=== PATIENT | female | born 1940 | race Caucasian/White ===

== ENCOUNTER 2018-05-26 17:52 | Inpatient (IN) | payer OTHER ==
[~2018-05-26] VITALS: Ht 154.9 cm; Wt 78.5 kg
[2018-05-26] MEDS ORDERED: SODIUM CHLORIDE 0.9% 500ML 500 ML IV STA (19:24)
[2018-05-26] MEDS ORDERED: ONDANSETRON HCL INJ 2 MG/ML VIAL IV STA ×2 (19:24→21:34)
[2018-05-26] MEDS ORDERED: LABETALOL HCL 5 MG/ML 20ML VIAL IV STA (19:24)
[2018-05-26] MEDS ORDERED: MECLIZINE HCL 12.5 MG TAB PO NR (19:30)
[2018-05-26 19:59] LABS: BASOPHILS # (AUTO) 0.1 (0.0-0.1); BASOPHILS % 0.6 % (0.0-1.0); EOSINOPHILS % 0.4 % (0.0-6.0); HEMATOCRIT 37.7 % (34.2-44.1); HEMOGLOBIN 12.8 g/dL (12.0-16.0); LYMPHOCYTES # (AUTO) 1.5 (1.0-3.2); LYMPHOCYTES % 18.8 % (18.0-39.1); MEAN CORPUSCULAR HEMOGLOBIN 28.8 pg (28-32); MEAN CORPUSCULAR VOLUME 84.7 fL (81-99); MONOCYTES # (AUTO) 0.4 (0.2-0.8); MONOCYTES % 5.4 % (4.4-11.3); NEUTROPHILS # (AUTO) 5.8 (2.1-6.9); NEUTROPHILS % 74.4 % (38.7-80.0); PLATELET COUNT 271 x10e3/uL (140-360); RED BLOOD COUNT 4.45 x10e6/uL (3.6-5.1); RED CELL DISTRIBUTION WIDTH 12.8 % (11.7-14.4)
[2018-05-26 20:10] LABS: CLARITY,URINE HAZY (CLEAR); COLOR,URINE YELLOW (YELLOW); LEUKOCYTE ESTERASE ,URINE NEGATIVE (NEGATIVE); NITRITE,URINE NEGATIVE (NEGATIVE); PROTEIN,URINE DIPSTICK 2+ (NEGATIVE)
[2018-05-26 20:11] LABS: BILIRUBIN,URINE NEGATIVE (NEGATIVE); KETONES,URINE 1+ (NEGATIVE); URINE UROBILINOGEN 0.2 mg/dL (0.2 - 1)
[2018-05-26 20:18] LABS: INR 1.07; PARTIAL THROMBOPLASTIN TIME 30.1 seconds (23.8-35.5); PROTHROMBIN TIME 13.1 seconds (11.9-14.5)
[2018-05-26 20:20] LABS: BACTERIA,URINE MODERATE /HPF; EPITHELIAL CELLS,URINE MODERATE /LPF; WBC,URINE (MAN) 0-5 /HPF (0-5)
[2018-05-26] MEDS ORDERED: METOPROLOL TARTRATE INJ 1 MG/ML VIAL IV NR (21:15)
[2018-05-26 21:27] LABS: ALANINE AMINOTRANSFERASE 14 IU/L (0-55); ALBUMIN 3.8 g/dL (3.5-5.0); ALKALINE PHOSPHATASE 60 IU/L (40-150); AMYLASE 22 U/L (25-125); ANION GAP 15.3 mmol/L (8-16); BLOOD UREA NITROGEN 14 mg/dL (7-26); BUN/CREATININE RATIO 19 (6-25); CALCIUM 9.4 mg/dL (8.4-10.2); CARBON DIOXIDE 21 mmol/L (22-29); CHLORIDE 98 mmol/L (98-107); CREATINE KINASE 78 IU/L (29-168); CREATININE, SERUM 0.72 mg/dL (0.57-1.11); EST GLOMERULAR FILTRATION RATE > 60 ML/MIN (60-); GLUCOSE 142 mg/dL (74-118); LIPASE 17 U/L (8-78); MAGNESIUM 1.5 MG/DL (1.3-2.1); POTASSIUM 3.3 mmol/L (3.5-5.1); SODIUM 131 mmol/L (136-145)
[2018-05-26] MEDS ORDERED: ULTRACET TABLE1 EACH PO (21:31)
[2018-05-26] MEDS ORDERED: MONTELUKAST SOD10 MG PO (21:31)
[2018-05-26] MEDS ORDERED: LOSARTAN-HCTZ1 EAC1 PO (21:31)
[2018-05-26] MEDS ORDERED: LABETALOL HCL200 MG PO (21:31)
[2018-05-26] MEDS ORDERED: TIZANIDINE HCL4 MG PO (21:31)
[2018-05-26] MEDS ORDERED: GABAPENTIN300 MG PO (21:31)
[2018-05-26] MEDS ORDERED: CHLORTHALIDONE50 MG PO (21:31)
[2018-05-26] MEDS ORDERED: PRAVASTATIN SOD20 MG PO (21:31)
[2018-05-26] MEDS ORDERED: SPIRONOLACTONE25 MG PO (21:31)
[2018-05-26] MEDS ORDERED: AMLODIPINE BESYL5 MG PO (21:31)
[2018-05-26] MEDS ORDERED: HYDRALAZINE HCL50 MG PO (21:31)
--- NOTE | 2018-05-26 21:34 | Diagnostic Imaging Report ---
CHEST SINGLE (PORTABLE), 05/26/2018 7:24 PM Technique: CHEST SINGLE (PORTABLE) Comparison: None available. Clinical history: Dizziness Findings: See Impression Impression: 1. Mildly enlarged cardiac silhouette, accentuated by portable technique. 2. No consolidation or edema. 3. No effusion or pneumothorax. Signed by: Dr Lola Huynh MD on 05/26/2018 9:31 PM
[2018-05-26] MEDS ORDERED: ASPIR 8181 MG PO (21:41)
[2018-05-26] MEDS ORDERED: NEXIUM20 MG PO (21:41)
[2018-05-26] MEDS ORDERED: OXYBUTYNIN CHLOR5 M1 PO (21:42)
[2018-05-26] MEDS ORDERED: HYDRALAZINE HCL 25 MG TAB PO ONE ×2 (21:45)
[2018-05-26] MEDS ORDERED: METOPROLOL TARTRATE INJ 1 MG/ML VIAL IV ONE ×2 (21:45)
[2018-05-26] MEDS ORDERED: NITROGLYCERIN 2% OINT 1 GM PKT ONE (22:12)
[2018-05-26] MEDS ORDERED: NITROGLYCERIN 2% OINT 1 GM PKT TOP ONE (22:15)
--- NOTE | 2018-05-26 22:28 | Diagnostic Imaging Report ---
EXAMINATION: Head CT without contrast. HISTORY:Nausea and dizziness. COMPARISON:None. TECHNIQUE: Multidetector axial images were obtained from the foramen magnum to the vertex without contrast. The images were reconstructed using brain and bone algorithms. Thin section brain images were reformatted into coronal and sagittal planes. Dose modulation, iterative reconstruction, and/or weight based adjustment of the mA/kV was utilized to reduce the radiation dose to as low as reasonably achievable. Intravenous contrast: None IMAGE QUALITY: Acceptable. FINDINGS: Skull/scalp: No lytic or blastic. lesions. No surgical changes. Parenchyma: Nonspecific bilateral frontoparietal confluent periventricular and patchy subcortical white matter hypodensity are likely related to small vessel ischemic changes. Focal hypodensity in left caudate head represents an old lacunar infarct. No acute hemorrhage, mass or acute major vascular territorial infarct. Arteries: No density suggestive of thrombosis. Mild atherosclerotic calcification in bilateral carotid siphon. Dural sinuses: No abnormal density suggestive of thrombosis. Ventricles: Mild compensated dilatation due to volume loss. No hydrocephalus. Extra-axial spaces: Incidental extra-axial, right anterior para falcine small, rounded lesion that approximately measures 1 x 1.2 x 0.6 cm (image 20, series 2) without significant regional mass effect or edema. Brain volume: Generalized age-related cerebral volume loss. Craniocervical junction: No mass, Chiari malformation, or basilar invagination. Sella: No mass. Paranasal/mastoid sinuses: Mild mucosal thickening in right and moderate mucosal thickening in left anterior ethmoid air cells. Mild mucosal thickening in left frontal sinus. IMPRESSION: 1. No acute intracranial abnormality, particularly no acute hemorrhage, mass or acute major vascular territorial infarct. 2. Severe supratentorial white matter microvascular ischemic changes. 3. Incidental right anterior parafalcine 1.2 cm extra-axial lesion, possibly represents an incidental meningioma. 4. Generalized age-related cerebral volume loss. Signed by: Dr. Carol Walters M.D. on 05/26/2018 10:25 PM
[2018-05-26] MEDS ORDERED: TRAMADOL/APAP 37.5MG-325MG TAB PO PRN (23:15)
[2018-05-26] MEDS ORDERED: MECLIZINE HCL 12.5 MG TAB PO PRN (23:15)
[2018-05-26] MEDS ORDERED: SODIUM CHLORIDE FLUSH 10 ML SYR INJ PRN (23:15)
[2018-05-27] VITALS (8 sets, daily range): BP systolic 94–173; BP diastolic 46–79
[2018-05-27] MEDS: ONDANSETRON HCL INJ 2 MG/ML VIAL IV PRN ×2 (01:47→05:55)
[2018-05-27] MEDS: NITROGLYCERIN 2% OINT 1 GM PKT TOP SCH ×3 (03:53→11:50)
[2018-05-27 05:12] LABS: BASOPHILS # (AUTO) 0.1 (0.0-0.1); BASOPHILS % 0.5 % (0.0-1.0); EOSINOPHILS % 0.2 % (0.0-6.0); HEMATOCRIT 33.4 % (34.2-44.1); HEMOGLOBIN 11.2 g/dL (12.0-16.0); LYMPHOCYTES % 21.7 % (18.0-39.1); MEAN CORPUSCULAR HEMOGLOBIN 28.5 pg (28-32); MEAN CORPUSCULAR HGB CONC 33.5 g/dL (31-35); MONOCYTES # (AUTO) 0.8 (0.2-0.8); MONOCYTES % 8.3 % (4.4-11.3); NEUTROPHILS # (AUTO) 6.4 (2.1-6.9); PLATELET COUNT 240 x10e3/uL (140-360); RED BLOOD COUNT 3.93 x10e6/uL (3.6-5.1); RED CELL DISTRIBUTION WIDTH 12.7 % (11.7-14.4)
[2018-05-27 05:33] LABS: ALANINE AMINOTRANSFERASE 13 IU/L (0-55); ALBUMIN 3.6 g/dL (3.5-5.0); ALBUMIN/GLOBULIN RATIO 1.1 (0.8-2.0); ALKALINE PHOSPHATASE 55 IU/L (40-150); ANION GAP 14.1 mmol/L (8-16); BLOOD UREA NITROGEN 16 mg/dL (7-26); BUN/CREATININE RATIO 20 (6-25); CALCIUM 9.4 mg/dL (8.4-10.2); CARBON DIOXIDE 24 mmol/L (22-29); CHLORIDE 94 mmol/L (98-107); EST GLOMERULAR FILTRATION RATE > 60 ML/MIN (60-); GLUCOSE 137 mg/dL (74-118); POTASSIUM 3.1 mmol/L (3.5-5.1); SODIUM 129 mmol/L (136-145)
[2018-05-27] MEDS: HYDRALAZINE HCL 25 MG TAB PO SCH ×3 (08:25→21:00)
[2018-05-27] MEDS: LOSARTAN POTASSIUM 100 MG TAB PO SCH (08:26)
[2018-05-27] MEDS: ASPIRIN 81 MG CHEW TAB PO SCH (08:26)
[2018-05-27] MEDS: HYDROCHLOROTHIAZIDE 25 MG TAB PO SCH (08:27)
[2018-05-27] MEDS: PRAVASTATIN 20 MG TAB PO SCH (08:27)
[2018-05-27] MEDS: AMLODIPINE BESYLATE 5 MG TAB PO SCH ×2 (08:27→09:00)
[2018-05-27] MEDS: CHLORTHALIDONE 25 MG TAB PO SCH (08:27)
[2018-05-27] MEDS: OXYBUTYNIN CHLORIDE XL 5 MG TAB PO SCH (08:27)
[2018-05-27] MEDS: GABAPENTIN 300 MG CAP PO SCH ×3 (08:27→21:13)
[2018-05-27] MEDS: MONTELUKAST SODIUM 10 MG TAB PO SCH (08:27)
[2018-05-27] MEDS: PANTOPRAZOLE SOD 40 MG TABEC PO SCH (08:27)
[2018-05-27] MEDS: TIZANIDINE HCL 4 MG TAB PO SCH ×3 (08:28→21:13)
[2018-05-27] MEDS: LABETALOL HCL 200 MG TAB PO SCH ×3 (08:28→21:00)
[2018-05-27] MEDS ORDERED: QUESTRAN PACKET4 GM PO (09:43)
[2018-05-27] MEDS ORDERED: FLUTICASONE PRO60 ML (09:43)
[2018-05-27] MEDS ORDERED: VOLTAREN100 GM TOP (09:43)
[2018-05-27] MEDS ORDERED: POTASSIUM CHLORIDE 20 MEQ TAB CR PO NR (13:45)
[2018-05-27] MEDS: SODIUM CHLORIDE 0.9% 1000ML 1,000 ML IV SCH (14:02)
--- NOTE | 2018-05-27 14:19 | Diagnostic Imaging Report ---
Exam: Abdominal film Clinical History: Vomiting Comparison: None. DISCUSSION: The left flank is not included on the image. The bowel gas pattern shows no dilated, air-filled loops of bowel. Gas and fecal material are noted throughout the large bowel. No abnormal abdominal calcification, mass effect, or organomegaly. Scoliotic curvature with associated degenerative disc changes throughout the lumbar spine. Skeletal structures are otherwise intact to the extent visualized. IMPRESSION: Nonobstructive bowel gas pattern. Signed by: Dr. Lucas Guzmán M.D. on 05/27/2018 2:15 PM
[2018-05-28] VITALS (7 sets, daily range): BP systolic 119–174; BP diastolic 57–92
[2018-05-28] MEDS: SODIUM CHLORIDE 0.9% 1000ML 1,000 ML IV SCH ×3 (01:00→18:45)
[2018-05-28] MEDS: HYDRALAZINE HCL 25 MG TAB PO SCH ×4 (02:11→22:48)
[2018-05-28 05:39] LABS: ANION GAP 10.9 mmol/L (8-16); MAGNESIUM 1.5 MG/DL (1.3-2.1)
[2018-05-28 05:55] LABS: POTASSIUM 2.9 mmol/L (3.5-5.1)
[2018-05-28 05:56] LABS: CREATININE, SERUM 1.42 mg/dL (0.57-1.11)
[2018-05-28] MEDS ORDERED: POTASSIUM CHLORIDE 20 MEQ TAB CR PO STA (05:58)
[2018-05-28 06:05] LABS: THYROID STIMULATING HORMONE 2.622 uIU/mL (0.350-4.940)
[2018-05-28] MEDS ORDERED: POTASSIUM CHLORIDE 20 MEQ TAB CR PO SCH (08:00)
[2018-05-28] MEDS: PANTOPRAZOLE SOD 40 MG TABEC PO SCH (08:33)
[2018-05-28] MEDS: HYDROCHLOROTHIAZIDE 25 MG TAB PO SCH (08:33)
[2018-05-28] MEDS: GABAPENTIN 300 MG CAP PO SCH ×2 (08:33→15:28)
[2018-05-28] MEDS: MONTELUKAST SODIUM 10 MG TAB PO SCH (08:33)
[2018-05-28] MEDS: PRAVASTATIN 20 MG TAB PO SCH (08:33)
[2018-05-28] MEDS: ASPIRIN 81 MG CHEW TAB PO SCH (08:33)
[2018-05-28] MEDS: LOSARTAN POTASSIUM 100 MG TAB PO SCH (08:33)
[2018-05-28] MEDS: OXYBUTYNIN CHLORIDE XL 5 MG TAB PO SCH (08:33)
[2018-05-28] MEDS: CHLORTHALIDONE 25 MG TAB PO SCH (08:33)
[2018-05-28] MEDS: TIZANIDINE HCL 4 MG TAB PO SCH ×2 (08:34→15:00)
[2018-05-28] MEDS: LABETALOL HCL 200 MG TAB PO SCH ×3 (09:00→21:00)
--- NOTE | 2018-05-28 11:09 | Diagnostic Imaging Report ---
EXAMINATION: Head CT without contrast. HISTORY:Lethargy, AMS. COMPARISON:CT head 05/26/2018 TECHNIQUE: Multidetector axial images were obtained from the foramen magnum to the vertex without contrast. The images were reconstructed using brain and bone algorithms. Thin section brain images were reformatted into coronal and sagittal planes. Dose modulation, iterative reconstruction, and/or weight based adjustment of the mA/kV was utilized to reduce the radiation dose to as low as reasonably achievable. Intravenous contrast: None IMAGE QUALITY: Good FINDINGS: Skull/scalp: No lytic or blastic. lesions. No surgical changes. Parenchyma: Scattered and confluent white matter hypodensity are likely related to small vessel ischemic changes. Chronic lacunar referred in the left caudate head. No acute hemorrhage, mass or acute major vascular territorial infarct. Arteries: No density suggestive of thrombosis. Mild atherosclerotic calcification in bilateral carotid siphon. Dural sinuses: No abnormal density suggestive of thrombosis. Ventricles: Mild compensated dilatation due to volume loss. No hydrocephalus. Extra-axial spaces: Again seen extra-axial, right anterior para falcine small, rounded lesion that approximately measures 1 x 1.2 x 0.6 cm (SI-AP-Trans): without significant regional mass effect or edema, probably represent a meningioma. Brain volume: Generalized age-related cerebral volume loss. Craniocervical junction: No mass, Chiari malformation, or basilar invagination. Sella: No mass. Paranasal/mastoid sinuses: Mild mucosal thickening in right and moderate mucosal thickening in left anterior ethmoid air cells. Mild mucosal thickening in left frontal sinus. IMPRESSION: 1. No acute intracranial abnormality. 2. Severe supratentorial white matter microvascular ischemic changes. 3. Generalized age-related cerebral volume loss. Signed by: DR Deny Tomas M.D. on 05/28/2018 11:06 AM
[2018-05-28 12:13] LABS: BASOPHILS % 0.4 % (0.0-1.0); EOSINOPHILS # (AUTO) 0.1 (0.0-0.4); EOSINOPHILS % 1.4 % (0.0-6.0); LYMPHOCYTES # (AUTO) 1.9 (1.0-3.2); LYMPHOCYTES % 22.4 % (18.0-39.1); MEAN CORPUSCULAR HEMOGLOBIN 28.8 pg (28-32); MEAN CORPUSCULAR HGB CONC 32.7 g/dL (31-35); MEAN CORPUSCULAR VOLUME 88.2 fL (81-99); MONOCYTES # (AUTO) 1.2 (0.2-0.8); MONOCYTES % 13.8 % (4.4-11.3); NEUTROPHILS # (AUTO) 5.2 (2.1-6.9); NEUTROPHILS % 61.9 % (38.7-80.0); PLATELET COUNT 182 x10e3/uL (140-360); RED CELL DISTRIBUTION WIDTH 13.1 % (11.7-14.4)
[2018-05-28 12:14] LABS: HEMOGLOBIN 9.8 g/dL (12.0-16.0)
[2018-05-28 12:19] LABS: ALBUMIN 3.1 g/dL (3.5-5.0); ANION GAP 11.4 mmol/L (8-16); BILIRUBIN,DIRECT 0.5 mg/dL (0.0-0.5); CALCIUM 8.6 mg/dL (8.4-10.2); CREATININE, SERUM 1.34 mg/dL (0.57-1.11); POTASSIUM 3.4 mmol/L (3.5-5.1)
[2018-05-28 13:01] LABS: ABG HCO3 23 mmol/L (23-28); ABG PCO2 39 mmHg (41-51); ABG PH 7.37 (7.31-7.41); ABG PO2 77 mmHg (80-105)
[2018-05-28] MEDS ORDERED: POTASSIUM CHLORIDE 20 MEQ TAB CR PO NR (14:00)
[2018-05-29 00:15] VITALS: BP 194/79
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
[2018-05-29] MEDS: SODIUM CHLORIDE 0.9% 1000ML 1,000 ML IV SCH (06:11)
[2018-05-29 06:15] VITALS: BP 181/77
[2018-05-29 08:00] VITALS: BP 194/77
[2018-05-29] MEDS: HYDRALAZINE HCL 25 MG TAB PO SCH ×3 (08:14→21:20)
[2018-05-29] MEDS: OXYBUTYNIN CHLORIDE XL 5 MG TAB PO SCH (08:14)
[2018-05-29] MEDS: ASPIRIN 81 MG CHEW TAB PO SCH (08:14)
[2018-05-29] MEDS: MONTELUKAST SODIUM 10 MG TAB PO SCH (08:15)
[2018-05-29] MEDS: PANTOPRAZOLE SOD 40 MG TABEC PO SCH (08:15)
[2018-05-29] MEDS: LABETALOL HCL 200 MG TAB PO SCH ×3 (08:15→22:00)
[2018-05-29] MEDS: PRAVASTATIN 20 MG TAB PO SCH (08:15)
--- NOTE | 2018-05-29 11:33 | Diagnostic Imaging Report ---
History: High blood pressure Comparison studies: None Technique: Sagittal T1, T2 and IR, axial T2 and axial gradient echo Intravenous contrast: None Findings: Alignment: Exaggerated lordosis. No scoliosis. Cervicomedullary junction: No abnormalities. Patent foramen magnum. Soft tissues: No T2 hyperintense inflammatory changes. Spinal cord: Normal in size and signal from the foramen magnum through T4 Vertebrae: Normal in height and signal intensity. No fractures, infection or neoplasm. Degenerative changes: C2-C3: Left subarticular disc osteophyte complex results in narrowing of the left subarticular recesses. Left uncinate process hypertrophy results in mild left foraminal narrowing C3-C4: Disc degeneration with loss of T2 signal. Diffuse disc osteophyte complex, uncinate process and facet hypertrophy results in no significant canal stenosis, moderate right and mild left foraminal narrowing C4-C5: Disc degeneration with loss of T2 signal. Central disc osteophyte complex, bilateral uncinate process hypertrophy, severe right and mild left facet hypertrophy results in moderate bilateral foraminal narrowing. Trace of fluid at the right facet joint C5-C6: Disc degeneration with loss of T2 signal. Diffuse disc osteophyte complex, bilateral uncinate process hypertrophy, mild right and moderate left facet hypertrophy results in mild canal stenosis and severe left foraminal narrowing. C6-C7: Disc degeneration with loss of T2 signal and decreased intervertebral space. Diffuse disc osteophyte complex, bilateral uncinate process hypertrophy and facet hypertrophy results in mild canal stenosis and severe left foraminal narrowing. C7-T1: Patent canal and foramina IMPRESSION: 1. Narrowing of the left subarticular recesses at C2-3 secondary to left subarticular disc osteophyte complex. 2. Severe degenerative left foraminal narrowing at C5-6 and C6-7. 3. Moderate degenerative foraminal narrowing at C3-4 on the right and C4-5 bilaterally. Mild degenerative canal stenosis at the mid cervical spine. 4. Multilevel facet hypertrophy with synovitis changes at C4-5 on the right. Signed by: DR Deny Tomas M.D. on 05/29/2018 11:30 AM
--- NOTE | 2018-05-29 11:53 | Diagnostic Imaging Report ---
History: High blood pressure Comparison studies: CT head 05/28/2018 Technique: Sagittal T2; axial DWI, FLAIR, MPGR, T1, Coronal FLAIR. Intravenous contrast: None Findings: Scalp: Normal in signal . No masses . Bone marrow: Normal in signal intensity. Extra-axial: No masses, no fluid collections. Brain sulci: Appropriate for age. Ventricles: Normal in size . No hydrocephalus . Parenchyma: Multiple foci of restricted diffusion at the bilateral centrum semiovale and right lateral occipital subcortical white matter with associated FLAIR hyperintensity Scattered and confluent T2/flair hyperintensities of the periventricular and deep white matter No masses, hemorrhage, acute or chronic vascular insults. Suprasellar region: No abnormalities. Craniocervical junction: No abnormalities. Patent foramen magnum. No Chiari one malformation. Vessels: Normal flow-voids in the arteries and sinuses. Bilateral cataract surgery changes. IMPRESSION: 1. Small acute lacunar infarcts at the bilateral centrum semiovale and right lateral occipital region in the watershed distribution. 2. Moderate to severe chronic microvascular ischemic changes of the white matter The above finding was reported and acknowledged by Dr. Dinh at 12:13 PM 05/29/2018. Signed by: DR Deny Tomas M.D. on 05/29/2018 12:14 PM
[2018-05-29 12:38] VITALS: BP 207/85
[2018-05-29 16:20] VITALS: BP 205/78
[2018-05-29 16:36] LABS: ANION GAP 10.9 mmol/L (8-16); BLOOD UREA NITROGEN 16 mg/dL (7-26); BUN/CREATININE RATIO 21 (6-25); CALCIUM 9.6 mg/dL (8.4-10.2); CARBON DIOXIDE 24 mmol/L (22-29); CHLORIDE 105 mmol/L (98-107); CREATININE, SERUM 0.77 mg/dL (0.57-1.11); EST GLOMERULAR FILTRATION RATE > 60 ML/MIN (60-); GLUCOSE 99 mg/dL (74-118); POTASSIUM 3.9 mmol/L (3.5-5.1); SODIUM 136 mmol/L (136-145)
[2018-05-29] MEDS ORDERED: HYDRALAZINE HCL 25 MG TAB PO ONE (16:45)
[2018-05-29 16:48] LABS: CHOL/HDL RATIO 2.7 (3.0-3.6)
[2018-05-29 19:27] LABS: BASOPHILS % 0.5 % (0.0-1.0); EOSINOPHILS # (AUTO) 0.3 (0.0-0.4); EOSINOPHILS % 3.7 % (0.0-6.0); HEMOGLOBIN 9.8 g/dL (12.0-16.0); LYMPHOCYTES # (AUTO) 2.2 (1.0-3.2); LYMPHOCYTES % 26.8 % (18.0-39.1); MEAN CORPUSCULAR HEMOGLOBIN 28.9 pg (28-32); MEAN CORPUSCULAR HGB CONC 32.7 g/dL (31-35); MEAN CORPUSCULAR VOLUME 88.5 fL (81-99); MONOCYTES # (AUTO) 0.9 (0.2-0.8); MONOCYTES % 10.4 % (4.4-11.3); NEUTROPHILS # (AUTO) 4.8 (2.1-6.9); NEUTROPHILS % 58.4 % (38.7-80.0); PLATELET COUNT 207 x10e3/uL (140-360); RED BLOOD COUNT 3.39 x10e6/uL (3.6-5.1); RED CELL DISTRIBUTION WIDTH 13.2 % (11.7-14.4)
[2018-05-29 20:00] VITALS: BP 201/81
[2018-05-30] VITALS (8 sets, daily range): BP systolic 141–202; BP diastolic 63–82
[2018-05-30 06:23] LABS: BASOPHILS # (AUTO) 0.1 (0.0-0.1); BASOPHILS % 0.7 % (0.0-1.0); EOSINOPHILS # (AUTO) 0.3 (0.0-0.4); HEMATOCRIT 29.7 % (34.2-44.1); HEMOGLOBIN 9.7 g/dL (12.0-16.0); LYMPHOCYTES # (AUTO) 2.1 (1.0-3.2); LYMPHOCYTES % 26.7 % (18.0-39.1); MEAN CORPUSCULAR HEMOGLOBIN 28.7 pg (28-32); MEAN CORPUSCULAR HGB CONC 32.7 g/dL (31-35); MEAN CORPUSCULAR VOLUME 87.9 fL (81-99); MONOCYTES # (AUTO) 0.7 (0.2-0.8); MONOCYTES % 8.6 % (4.4-11.3); NEUTROPHILS # (AUTO) 4.8 (2.1-6.9); NEUTROPHILS % 59.8 % (38.7-80.0); PLATELET COUNT 219 x10e3/uL (140-360); RED BLOOD COUNT 3.38 x10e6/uL (3.6-5.1); RED CELL DISTRIBUTION WIDTH 13.2 % (11.7-14.4)
[2018-05-30 06:40] LABS: ANION GAP 12.7 mmol/L (8-16); BLOOD UREA NITROGEN 12 mg/dL (7-26); BUN/CREATININE RATIO 15 (6-25); CALCIUM 9.5 mg/dL (8.4-10.2); CARBON DIOXIDE 24 mmol/L (22-29); CHLORIDE 103 mmol/L (98-107); CREATININE, SERUM 0.78 mg/dL (0.57-1.11); EST GLOMERULAR FILTRATION RATE > 60 ML/MIN (60-); GLUCOSE 141 mg/dL (74-118); MAGNESIUM 1.4 MG/DL (1.3-2.1); POTASSIUM 3.7 mmol/L (3.5-5.1); SODIUM 136 mmol/L (136-145)
[2018-05-30] MEDS: LABETALOL HCL 200 MG TAB PO SCH ×3 (09:00→21:47)
[2018-05-30] MEDS: MONTELUKAST SODIUM 10 MG TAB PO SCH (09:00)
[2018-05-30] MEDS: ASPIRIN 81 MG CHEW TAB PO SCH (09:00)
[2018-05-30] MEDS: HYDRALAZINE HCL 25 MG TAB PO SCH ×3 (09:00→21:25)
[2018-05-30] MEDS: PRAVASTATIN 20 MG TAB PO SCH (09:00)
[2018-05-30] MEDS: OXYBUTYNIN CHLORIDE XL 5 MG TAB PO SCH (09:00)
[2018-05-30] MEDS: PANTOPRAZOLE SOD 40 MG TABEC PO SCH (09:00)
[2018-05-30] MEDS ORDERED: LOSARTAN POTASSIUM 25 MG TAB PO SCH (11:00)
[2018-05-30] MEDS ORDERED: HYDROCHLOROTHIAZIDE 25 MG TAB PO SCH (13:30)
[2018-05-30] MEDS ORDERED: LOSARTAN POTASSIUM 100 MG TAB PO ONE (14:00)
[2018-05-30] MEDS ORDERED: ENOXAPARIN SOD INJ 40 MG/0.4 ML SYR SC SCH (17:00)
[2018-05-30] MEDS: CHLORTHALIDONE 25 MG TAB PO SCH (17:15)
[2018-05-31] VITALS: BP 180/76
[2018-05-31 04:00] VITALS: BP 188/75
[2018-05-31 08:35] VITALS: BP 170/70
[2018-05-31] MEDS: CHLORTHALIDONE 25 MG TAB PO SCH (08:35)
[2018-05-31] MEDS: LABETALOL HCL 200 MG TAB PO SCH (08:35)
[2018-05-31] MEDS: OXYBUTYNIN CHLORIDE XL 5 MG TAB PO SCH (08:35)
[2018-05-31] MEDS: PRAVASTATIN 20 MG TAB PO SCH (08:35)
[2018-05-31] MEDS: PANTOPRAZOLE SOD 40 MG TABEC PO SCH (08:35)
[2018-05-31] MEDS: ASPIRIN 81 MG CHEW TAB PO SCH (08:35)
[2018-05-31] MEDS: MONTELUKAST SODIUM 10 MG TAB PO SCH (08:35)
[2018-05-31] MEDS: HYDRALAZINE HCL 25 MG TAB PO SCH (08:35)
[2018-05-31 08:47] VITALS: BP 170/70
[2018-05-31] MEDS ORDERED: LOSARTAN POTASSIUM 100 MG TAB PO SCH (09:00)
[2018-05-31] MEDS ORDERED: CHLORTHALIDONE 25 MG TAB PO ONE (10:45)
[2018-05-31] MEDS ORDERED: HYDROCHLOROTHIAZIDE 25 MG TAB PO SCH (11:00)
--- NOTE | 2018-05-31 11:05 | Discharge Summary ---
PRIMARY CARE DOCTOR: Dr. Kierra De La Torre at [facility]. FINAL DIAGNOSIS: Viral gastroenteritis. SECONDARY DIAGNOSES 1. Dehydration with acute renal failure, resolved. 2. Altered mental status likely due to not clearing her Neurontin in the setting of acute renal failure. 3. Uncontrolled hypertension, better. 4. 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 5. Hyponatremia, resolved. CONSULTANTS: Dr. Dinh, neurologist. PROCEDURES/STUDIES PERFORMED 1. Carotid Doppler. 2. Echocardiogram. 3. Head computerized tomography times 2. 4. KUB. 5. MRI of the brain. 6. MRI of the cervical spine. HISTORY: Per H and P. HOSPITAL COURSE: Patient initially was admitted with gastroenteritis and malignant hypertension. The nausea got better. Her blood pressure medicines were resumed, which includes losartan and 2 diuretics. Patient had an increase in her creatinine up to 1.4. Subsequently, this got better. However, the patient also takes Neurontin and a muscle relaxant. Patient was very lethargic, likely was not clearing these 2 medicines in the setting of acute renal failure. Head CT did not show any acute disease. However, MRI did show an acute watershed stroke. Patient recovered nicely with no deficits. This is likely due to a transient drop in blood pressure down to 110 compared to when she was first admitted. Her blood pressure was well over 200 systolic. After everything is doing better, her blood pressure is still not well controlled until we increased her hydralazine to 100 mg t.i.d. from her 25 mg at home. The patient's carotid Doppler was borderline. However, CTA of the neck was not done given the fact that the patient just recovered from acute renal failure. I have spoken to her PCP in detail. The patient will follow up with her this coming week. She will arrange for her to see vascular. Most likely, she will need a CTA of the neck. The patient was seen and examined today. It took 32 minutes total to discharge this patient. CONDITION ON DISCHARGE: Improved. DISCHARGE MEDICATIONS: Please see medication reconciliation form. ORALIA HAYNES M.D. Job#: [id number] [place] cc:KIERRA DE LA TORRE MD
[2018-05-31 11:47] VITALS: BP 141/63
[2018-05-31] MEDS ORDERED: HYDRALAZINE HCL25 MG PO (12:39)
[2018-06-01] MEDS ORDERED: CHLORTHALIDONE 25 MG TAB PO SCH (09:00)
== END 2018-05-31 14:37 | disposition home or self-care (01) | DRG 391 ==
LOC: ER 17:52 → ERHOLD 23:11 → INTOOBSV 23:11 → OBSVTOIN 23:11 → IMCU 05-27 00:18 → OBSVTOIN 05-29 14:20 → MED/SURG 05-29 17:12
PROVIDERS: ADMIT Internal Medicine; ATTEND Internal Medicine
DX: A08.4 Viral intestinal infection, unspecified (principal); G93.40 Encephalopathy, unspecified; I63.8 Other cerebral infarction; N17.9 Acute kidney failure, unspecified; E87.1 Hypo-osmolality and hyponatremia; E87.2 Acidosis; E86.0 Dehydration; N28.9 Disorder of kidney and ureter, unspecified; I10 Essential (primary) hypertension; E11.9 Type 2 diabetes mellitus without complications; M50.30 Other cervical disc degeneration, unspecified cervical region; E78.5 Hyperlipidemia, unspecified; E87.6 Hypokalemia; I95.9 Hypotension, unspecified; T42.6X5A Adverse effect of other antiepileptic and sedative-hypnotic drugs, initial encounter
CPT/HCPCS: 36415; 36600; 70450; 70551; 71045; 72141; 74018; 80048; 80053; 80061; 80076; 81001; 82140; 82150; 82550; 82553; 82607; 82805; 82948; 83036; 83690; 83735; 83880; 84425; 84443; 84484; 85025; 85610; 85730; 86592; 87040; 87086; 92523; 93005; 93306; 93880; 96361; 99284; G0378; J1650; J2405; J7030; J7040

== ENCOUNTER 2019-02-11 14:38 | Emergency (ER) | payer OTHER ==
[~2019-02-11] VITALS: Ht 154.9 cm; Wt 78.5 kg
[~2019-02-11 14:38] MED LIST: AMLODIPINE BESYL5 MG PO; ASPIR 8181 MG PO; CHLORTHALIDONE50 MG PO; FLUTICASONE PRO60 ML; GABAPENTIN300 MG PO; HYDRALAZINE HCL25 MG PO; HYDRALAZINE HCL50 MG PO; LABETALOL HCL200 MG PO; LOSARTAN-HCTZ1 EAC1 PO; MONTELUKAST SOD10 MG PO; NEXIUM20 MG PO; OXYBUTYNIN CHLOR5 M1 PO; PRAVASTATIN SOD20 MG PO; QUESTRAN PACKET4 GM PO; SPIRONOLACTONE25 MG PO; TIZANIDINE HCL4 MG PO; ULTRACET TABLE1 EACH PO; VOLTAREN100 GM TOP
--- OUTSIDE RECORDS SUMMARY | 2019-02-11 14:41 | XMS REPORT ---
Author Author [facility] Address Unknown Phone Unavailable Care Team Providers Care [employer] Line Crew Member Name Role Phone Idner HAYNES Unavailable Unavailable Problems This patient has no known problems. Allergies, Adverse Reactions, Alerts This patient has no known allergies or adverse reactions. Medications This patient has no known medications. Results Test Description Test Time Test Comments Text Results Atomic Results Result Comments MRI BRAIN WO 2018-05-29 11:44:00 [place] [address] Patient Name: KWASI PRESSLEY MR #: [id number] : 1940 Age/Sex: 77/F Req #: [id number] [facility] Physician: ORALIA HAYNES MD Ordered by: HUDSON DINH M.D. Report #: [id number] Location: [facility] Room/Bed: [place] [address] Procedure: [id number] MRI/MRI BRAIN WO Exam Date: Exam Time: REPORT STATUS: Signed History: High blood pressure Comparison studies: CT head 05/28/2018 Technique: Sagittal T2; axial DWI, FLAIR, MPGR, T1, Coronal FLAIR. Intravenous contrast: None Findings: Scalp: Normal in signal . No masses . Bone marrow: Normal in signal intensity. Extra- axial: No masses, no fluid collections. Brain sulci: Appropriate for age. Ventricles: Normal in size . No hydrocephalus . Parenchyma: Multiple foci of restricted diffusion at the bilateral centrum semiovale and right lateral occipital subcortical white matter with associated FLAIR hyperintensity Scattered and confluent T2/flair hyperintensities of the periventricular and deep white matter No masses, hemorrhage, acute or chronic vascular insults. Suprasellar region: No abnormalities. Craniocervical junction: No abnormalities. Patent foramen magnum. No Chiari one malformation. Vessels: Normal flow-voids in the arteries and sinuses. Bilateral cataract surgery changes. IMPRESSION: 1. Small acute lacunar infarcts at the bilateral centrum semiovale and right lateral occipital region in the watershed distribution. 2. Moderate to severe chronic microvascular ischemic changes of the white matter The above finding was reported and acknowledged by Dr. Dinh at 12:13 PM 05/29/2018. Signed by: DR Deny Tomas M.D. on 05/29/2018 12:14 PM Dictated By: DENY WETZEL MD 1214 Transcribed By: MEREDITH on 05/29/18 1214 COPY TO: HUDSON DINH MD MRI SPINE CERVICAL WO 2018-05-29 11:17:00 [place] [address] Patient Name: KWASI PRESSLEY MR #: [id number] : 1940 Age/Sex: 77/F Req #: [id number] Adm Physician: ORALIA HAYNES MD Ordered by: HUDSON DINH M.D. Report #: [id number] Location: [facility] Room/Bed: [place] [address] Procedure: [id number] MRI/MRI SPINE CERVICAL WO Exam Date: Exam Time: REPORT STATUS: Signed History: High blood pressure Comparison studies: None Technique: Sagittal T1, T2 and IR, axial T2 and axial gradient echo Intravenous contrast: None Findings: Alignment: Exaggerated lordosis. No scoliosis. Cervicomedullary junction: No abnormalities. Patent foramen magnum. Soft tissues: No T2 hyperintense inflammatory changes. Spinal cord: Normal in size and signal from the foramen magnum through T4 Vertebrae: Normal in height and signal intensity. No fractures, infection or neoplasm. Degenerative changes: C2-C3: Left subarticular disc osteophyte complex results in narrowing of the left subarticular recesses. Left uncinate process hypertrophy results in mild left foraminal narrowing C3-C4: Disc degeneration with loss of T2 signal. Diffuse disc osteophyte complex, uncinate process and facet hypertrophy results in no significant canal stenosis, moderate right and mild left foraminal narrowing C4-C5: Disc degeneration with loss of T2 signal. Central disc osteophyte complex, bilateral uncinate process hypertrophy, severe right and mild left facet hypertrophy results in moderate bilateral foraminal narrowing. Trace of fluid at the right facet joint C5-C6: Disc degeneration with loss of T2 signal. Diffuse disc osteophyte complex, bilateral uncinate process hypertrophy, mild right and moderate left facet hypertrophy results in mild canal stenosis and severe left foraminal narrowing. C6-C7: Disc degeneration with loss of T2 signal and decreased intervertebral space. Diffuse disc osteophyte complex, bilateral uncinate process hypertrophy and facet hypertrophy results in mild canal stenosis and severe left foraminal narrowing. C7-T1: Patent canal and foramina IMPRESSION: 1. Narrowing of the left subarticular recesses at C2-3 secondary to left subarticular disc osteophyte complex. 2. Severe degenerative left foraminal narrowing at C5-6 and C6-7. 3. Moderate degenerative foraminal narrowing at C3-4 on the right and C4-5 bilaterally. Mild degenerative canal stenosis at the mid cervical spine. 4. Multilevel facet hypertrophy with synovitis changes at C4-5 on the right. Signed by: DR Deny Tomas M.D. on 05/29/2018 11:30 AM Dictated By: DENY WETZEL MD 1130 Transcribed By: MEREDITH on 05/29/18 1130 COPY TO: HUDSON DINH MD CT BRAIN WO 2018-05-28 10:56:00 [facility] [address] [place] [address] Patient Name: KWASI PRESSLEY MR #: [id number] : 1940 Age/Sex: 77/F Req #: [id number] Adm Physician: ORALIA HAYNES MD Ordered by: ORALIA HAYNES MD Report #: [id number] Location: [facility] Room/Bed: [place] [address] Procedure: [id number] CT/CT BRAIN WO Exam Date: 05/28/18 Exam Time: 1040 REPORT STATUS: Signed EXAMINATION: Head CT without contrast. HISTORY:Lethargy, AMS. COMPARISON:CT head 05/26/2018 TECHNIQUE: Multidetector axial images were obtained from the foramen magnum to the vertex without contrast. The images were reconstructed using brain and bone algorithms. Thin section brain images were reformatted into coronal and sagittal planes. Dose modulation, iterative reconstruction, and/or weight ba sed adjustment of the mA/kV was utilized to reduce the radiation dose to as low as reasonably achievable. Intravenous contrast: None IMAGE QUALITY: Good FINDINGS: Skull/scalp: No lytic or blastic. lesions. No surgical changes. Parenchyma: Scattered and confluent white matter hypodensity are likely related to small vessel ischemic changes. Chronic lacunar referred in the left caudate head. No acute hemorrhage, mass or acute major vascular territorial infarct. Arteries: No density suggestive of thrombosis. Mild atherosclerotic calcification in bilateral carotid siphon. Dural sinuses: No abnormal density suggestive of thrombosis. Ventricles: Mild compensated dilatation due to volume loss. No hydrocephalus. Extra-axial spaces: Again seen extra-axial, right anterior para falcine small, rounded lesion that approximately measures 1 x 1.2 x 0.6 cm (SI-AP-Trans): without significant regional mass effect or edema, probably represent a meningioma. Brain volume: Generalized age-related cerebral volume loss. Craniocervical junction: No mass, Chiari malformation, or basilar invagination. Sella: No mass. Paranasal/mastoid sinuses: Mild mucosal thickening in right and moderate mucosal thickening in left anterior ethmoid air cells. Mild mucosal thickening in left frontal sinus. IMPRESSION: 1. No acute intracranial abnormality. 2. Severe supratentorial white matter microvascular ischemic changes. 3. Generalized age-related cerebral volume loss. Signed by: DR Deny Tomas M.D. on 05/28/2018 11:06 AM Dictated By: DENY WETZEL MD 05 Transcribed By: MEREDITH on 05/28/181105 COPY TO: ORALIA HAYNES MD ABDOMEN-1VIEW (KUB) 2018-05-27 14:13:00 [place] [address] Patient Name: KWASI PRESSLEY MR #: [id number] : 1940 Age/Sex: 77/F Req #: [id number] Adm Physician: ORALIA HAYNES MD Ordered by: ORALIA HAYNES MD Report #: [id number] Location: [facility] Room/Bed: [place] [address] Procedure: [id number] DX/ABDOMEN-1VIEW (KU) Exam Date: Exam Time: REPORT STATUS: Signed Exam: Abdominal film Clinical History: Vomiting Comparison: None. DISCUSSION: The left flank is not included on the image. The bowel gas pattern shows no dilated, air-filled loops of bowel. Gas and fecal material are noted throughout the large bowel. No abnormal abdominal calcification, mass effect, or organomegaly. Scoliotic curvature with associated degenerative disc changes throughout the lumbar spine. Skeletal structures are otherwise intact to the extent visualized. IMPRESSION: Nonobstructive bowel gas pattern. Signed by: Dr. Jacy Ash M.D. on 05/27/2018 2:15 PM Dictated By: JACY ASH MD 14 Transcribed By: MEREDITH on 05/27/181414 COPY TO: ORALIA HAYNES MD CT BRAIN WO 2018-05-26 22:16:00 [place] [address] Patient Name: KWASI PRESSLEY MR #: [id number] : 1940 Age/Sex: 77/F Req #: [id number] Adm Physician: Ordered by: KELLE FAIRBANKS CLINICAL DOCUMENTATION SPEC Report #: [id number] Location: ER Room/Bed: Procedure: [id number] CT/CT BRAIN WO Exam Date: 05/26/18 Exam Time: 2029 REPORT STATUS: Signed EXAMINATION: Head CT without contrast. HISTORY:Nausea and dizziness. COMPARISON:None. TECHNIQUE: Multidetector axial images were obtained from the foramen magnum to the vertex without contrast. The images were reconstructed using brain and bone algorithms. Thin section brain images were reformatted into coronal and sagittal planes. Dose modulation, iterative reconstruction, and/or weight based adjustment of the mA/kV was utilized to reduce the radiation dose to as low as reasonably achievable. Intravenous contrast: None IMAGE QUALITY: Acceptable. FINDINGS: Skull/scalp: No lytic or blastic. lesions. No surgical changes. Parenchyma: Nonspecific bilateral frontoparietal confluent periventricular and patchy subcortical white matter hypodensity are likely related to small vessel ischemic changes. Focal hypodensity in left caudate head represents an old lacunar infarct. No acute hemorrhage, mass or acute major vascular territorial infarct. Arteries: No density suggestive of thrombosis. Mild atherosclerotic calcification in bilateral carotid siphon. Dural sinuses: No abnormal density suggestive of thrombosis. Ventricles: Mild compensated dilatation due to volume loss. No hydrocephalus. Extra-axial spaces: Incidental extra-axial, right anterior para falcine small, rounded lesion that approximately measures 1 x 1.2 x 0.6 cm (image 20, series 2) without significant regional mass effect or edema. Brain volume: Generalized age-related cerebral volume loss. Craniocervical junction: No mass, Chiari malformation, or basilar invagination. Sella: No mass. Paranasal/mastoid sinuses: Mild mucosal thickening in right and moderate mucosal thickening in left anterior ethmoid air cells. Mild mucosal thickening in left frontal sinus. IMPRESSION: 1. No acute intracranial abnormality, particularly no acute hemorrhage, mass or acute major vascular territorial infarct. 2. Severe supratentorial white matter microvascular ischemic changes. 3. Incidental right anterior parafalcine 1.2 cm extra- axial lesion, possibly represents an incidental meningioma. 4. Generalized age-related cerebral volume loss. Signed by: Dr. Carol Walters M.D. on 05/26/2018 10:25 PM Dictated By: CAROL WALTERS MD 24 Transcribed By: MEREDITH on 05/26/182224 COPY TO: KELLE FAIRBANKS NP CHEST SINGLE (PORTABLE) 2018-05-26 21:29:00 [place] [address] Patient Name: KWASI PRESSLEY MR #: [id number] : 1940 Age/Sex: 77/F Req #: [id number] Adm Physician: Ordered by: KELLE FAIRBANKS NP Report #: [id number] Location: ER Room/Bed: Procedure: [id number] DX/CHEST SINGLE (PORTABLE) Exam Date: 05/26/18 Exam Time: 2034 REPORT STATUS: Signed CHEST SINGLE (PORTABLE), 05/26/2018 7:24 PM Technique: CHEST SINGLE (PORTABLE) Comparison: None available. Clinical history: Dizziness Findings: See Impression Impression: 1. Mildly enlarged cardiac silhouette, accentuated by portable technique. 2. No consolidation or edema. 3. No effusion or pneumothorax. Signed by: Dr Radha Huynh MD on 05/26/2018 9:31 PM Dictated By: RADHA HUYNH MD 30 Transcribed By: MEREDITH on 05/26/182130 COPY TO: KELLE FAIRBANKS NP
[2019-02-11] MEDS ORDERED: CLONIDINE HCL 0.1 MG TAB PO ONE (15:30)
[2019-02-11] MEDS ORDERED: LABETALOL HCL 100 MG TAB PO ONE (15:30)
[2019-02-11] MEDS ORDERED: HYDRALAZINE HCL 100 MG TABLET PO NR (15:30)
[2019-02-11] MEDS ORDERED: HYDRALAZINE HCL 25 MG TAB PO ONE ×2 (15:30→16:15)
[2019-02-11 17:08] VITALS: BP 155/51
== END 2019-02-11 17:12 | disposition home or self-care (01) ==
LOC: ER 14:38
DX: M54.2 Cervicalgia (principal); S16.1XXA Strain of muscle, fascia and tendon at neck level, initial encounter; M54.6 Pain in thoracic spine; G44.201 Tension-type headache, unspecified, intractable; V43.62XA Car passenger injured in collision with other type car in traffic accident, initial encounter; Y92.488 Other paved roadways as the place of occurrence of the external cause; I10 Essential (primary) hypertension
CPT/HCPCS: 99282